=== PATIENT | female | born 1960 | race Caucasian/White ===

== ENCOUNTER 2021-03-23 13:01 | Inpatient (IN) ==
[2021-03-23] MEDS ORDERED: IOPAMIDOL 100 ML BOTTLE IV ONE (13:02)
--- NOTE | 2021-03-23 14:31 | Emergency Department Note ---
HPI General Chief complaint: Skin/Abscess/Rash Stated complaint: Cellulitis Time Seen by Provider: 03/23/21 13:20 Source: patient Mode of arrival: wheelchair Limitations: no limitations History of Present Illness HPI Narrative: Narrative: Patient presents emergency department for evaluation of left groin swelling and pain. She has history of fungal infection of the pannus and has been on fluconazole. She is concerned about possible cellulitis. No fever. No other complaints. Related Data Previous Rx's Medication Instructions Recorded fluconazole 200 mg PO Q7D 28 Days #4 tab MDD 1 03/16/21 per week ketoconazole-hydrocortisone 1 applic TOPICAL .QD 14 Days #30 g 03/16/21 Allergies Allergy/AdvReac Type Severity Reaction Status Date / Time azithromycin AdvReac Intermediate Rash Verified 03/16/21 12:50 Review of Systems ROS ROS Narrative: Narrative: As above, all other systems reviewed and negative. [facility] Narrative Patient History Narrative: Narrative: Reviewed Medical/Surgical/Family History All Active Problems (Updated 03/23/21 @ 16:20 by Darnell Walters MD) Morbid obesity with BMI of 50.0-59.9, adult (Acute) Necrotizing soft tissue infection (Acute) Tinea cruris (Acute) Social History Smoking Status: Never smoker Exam Narrative Narrative: Narrative: Blood pressure 157/77 pulse 105 respirations 19 temperature 97.9 satting 98% General Limitations: no limitations Head Head: Present atraumatic and normocephalic Eye Eye: Present normal appearance and PERRL ENT ENT: Present normal exam and normal oropharynx Neck Neck: Present normal inspection and full ROM Respiratory Respiratory: Absent respiratory distress Extremities Extremities: Present normal inspection Neurological Neurological: Present alert, oriented X3 and CN II-XII intact; Absent motor sensory deficit Psychiatric Psychiatric: Present normal affect and normal mood Skin Skin: Present other (Erythema to the pannus and left groin there are 2 spots in the groin with some small areas of eschar) Course Vital Signs Vital signs: Vital Signs Temperature 97.9 F 03/23/21 13:02 Pulse Rate 105 H 03/23/21 13:02 Respiratory Rate 19 03/23/21 13:02 Blood Pressure 157/77 03/23/21 13:02 Pulse Oximetry (%) 98 03/23/21 13:02 Temperature 97.9 F 03/23/21 13:02 Pulse Rate 113 H 03/23/21 16:14 Respiratory Rate 19 03/23/21 13:02 Blood Pressure 175/81 03/23/21 16:14 Pulse Oximetry (%) 95 03/23/21 16:14 [facility] MDM Narrative Medical decision making narrative: Narrative: CT abdomen pelvis as read by radiology shows: IMPRESSION: 2. Necrotizing fasciitis involving the left perineum, medial left thigh, and inferior pannus on the left 3. Anterior abdominal wall hernia with in the lower pelvis. This measures 6.4 x 4.9 cm. This contains small bowel. There is no small bowel obstruction 4. Nonobstructing left lower pole renal calculus 5. 2 cm left adrenal nodule 6. Degenerative disc dis e at L5-S1 Upon results of CT scan further laboratory studies were ordered to include CBC, ABG, blood cultures, antibiotics: Vancomycin and Zosyn, IV fluids. I also spoke with Dr. Rousseau on-call surgeon. Case reviewed in detail over the phone. Surgery came promptly to the emergency department and evaluated the patient and are planning to take the patient to the operating room. Discussed findings of the work-up with the patient. Her questions were answered. She is agreeable with the plan. Lab Data Result diagrams: 03/23/21 14:30 03/23/21 14:30 Labs: Lab Results 03/23/21 03/23/21 03/23/21 Range/Units 14:30 14:30 14:30 WBC 18.4 H (4.5-11.0) K/mcL RBC 4.47 (3.59-5.38) M/mcL Hgb 13.5 (11.2-15.7) g/dL Hct 41.4 (34.1-44.9) % POC Hct 42 (36-48) % MCV 92.6 (80.0-100.0) fL MCH 30.2 (26.0-34.0) pg MCHC 32.6 (31.0-36.0) g/dL RDW 14.1 (11.5-14.5) % Plt Count 398 (140-440) K/mcL MPV 10.1 (7.4-10.4) fL Neut % (Auto) 85.4 H (38.0-78.0) % Lymph % (Auto) 8.4 L (15.5-49.0) % Thomas % (Auto) 5.6 (1.0-12.0) % Eos % (Auto) 0.2 (0.0-7.0) % Baso % (Auto) 0.4 (0.0-2.0) % Lymph # (Auto) 1.54 (1.50-4.80) K/mcL Thomas # (Auto) 1.02 H (0.10-0.90) K/mcL Eos # (Auto) 0.03 (0.00-0.70) K/mcL Baso # (Auto) 0.07 (0.00-0.30) K/mcL Absolute Neutrophils 15.71 H (1.80-8.00) K/mcL POC Sodium 138 (133-145) mEq/L Sodium 135 (133-145) mmol/L POC Potassium 3.9 (3.3-5.1) mEql/L Potassium 4.2 (3.3-5.1) mmol/L POC Chloride 102 (96-108) mEq/L Chloride 98 (96-108) mmol/L Carbon Dioxide 22 (22-30) mmol/L POC Total CO2 26 (22-30) mmol/L Anion Gap 15.0 (8.0-16.0) POC BUN 15 (6-20) mg/dL BUN 13 (6-20) mg/dL Creatinine 0.5 L (0.6-1.1) mg/dL POC Creatinine 0.4 L (0.6-1.2) mg/dL GFR Calculation 106 Glucose 244 H (70-105) mg/dL POC Glucose 261 H (70-105) mg/dL Calcium 9.3 (8.6-10.4) mg/dL POC WB Ioniz Calcium 1.03 L (1.16-1.32) mmEq/L Total Bilirubin 0.4 (0.1-1.0) mg/dL AST 16 (<32) U/L ALT 20 (<40) U/L Alkaline Phosphatase 224 H (39-117) U/L Total Protein 7.2 (5.9-8.4) gm/dL Albumin 2.8 L (3.2-5.2) gm/dL Globulin 4.4 H (2.2-3.7) gm/dL Albumin/Globulin Ratio 0.6 L (1.0-2.3) ED POC Tests ED POC Tests: ADALID - SARS Antigen Negative Discharge Plan Patient/Caregiver Discharge Instructions Pt seen by ASSET MANAGER/PA only: No Clinical Impression: Necrotizing soft tissue infection Patient Disposition: Xfer As Inpt ([facility]) Condition: Good Follow up with: No,PCP [Primary Care Provider] - Prescriptions: No Action fluconazole 200 mg tablet 200 mg PO Q7D MDD 1 per week 28 Days Qty: 4 RF: 0 ketoconazole-hydrocortisone 2-2.5 % cream 1 applic topical .QD 14 Days Qty: 30 RF: 1
[2021-03-23 14:39] LABS: POC Blood Urea Nitrogen 15 mg/dL (6-20); POC CO2 26 mmol/L (22-30); POC Calcium, Ionized 1.03 mmEq/L (1.16-1.32); POC Chloride 102 mEq/L (96-108); POC Creatinine 0.4 mg/dL (0.6-1.2); POC Glucose, Random 261 mg/dL (70-105); POC Hematocrit 42 % (36-48); POC Potassium 3.9 mEql/L (3.3-5.1); POC Sodium 138 mEq/L (133-145)
[2021-03-23] MEDS ORDERED: VANCOMYCIN PER PHARMACY IV ONE (15:04)
[2021-03-23] MEDS ORDERED: PIPERACILLIN SODIUM/TAZOBACTAM 3.375 GM in DEXTROSE 5% IN WATER 50 ML IV ONE (15:04)
[2021-03-23] MEDS ORDERED: 0.9 % SODIUM CHLORIDE 1,000 ML IV ONE (15:18)
[2021-03-23 15:25] LABS: Basophils # (Auto) 0.07 K/mcL (0.00-0.30); Basophils % (Auto) 0.4 % (0.0-2.0); Eosinophils # (Auto) 0.03 K/mcL (0.00-0.70); Eosinophils % (Auto) 0.2 % (0.0-7.0); Hematocrit 41.4 % (34.1-44.9); Hemoglobin 13.5 g/dL (11.2-15.7); Lymphocytes # (Auto) 1.54 K/mcL (1.50-4.80); Lymphocytes % (Auto) 8.4 % (15.5-49.0); Mean Cell Volume 92.6 fL (80.0-100.0); Mean Corpuscular HGB Conc 32.6 g/dL (31.0-36.0); Mean Platelet Volume 10.1 fL (7.4-10.4); Monocytes # (Auto) 1.02 K/mcL (0.10-0.90); Monocytes % (Auto) 5.6 % (1.0-12.0); Neutrophils % (Auto) 85.4 % (38.0-78.0); Platelet Count 398 K/mcL (140-440); RBC 4.47 M/mcL (3.59-5.38); Red Cell Distribution Width 14.1 % (11.5-14.5); WBC 18.4 K/mcL (4.5-11.0)
--- NOTE | 2021-03-23 15:25 | Cat Scan Report ---
INDICATION: groin pain / swelling, r/o abscess COMPARISON: None. TECHNIQUE: Axial images were obtained through the abdomen and pelvis. Sagittally and coronally reformatted images. 95 mL Isovue 370 injected intravenously. Oral contrast material was not administered. FINDINGS: Lung bases:Negative. No pulmonary parenchymal nodule. No pleural fluid or pericardial fluid Liver:Negative. No focal intrahepatic mass. No focal abnormality. Liver contour is smooth. No evidence for cirrhosis Gallbladder, bilary:There are multiple gallstones. No gallbladder wall thickening or pericholecystic fluid. No dilated bile ducts Spleen:No splenomegaly. Normal enhancement of splenic and portal veins. Pancreas:No pancreatic mass. No peripancreatic abnormality Adrenal glands:2.2 cm left adrenal nodule. NHUNG values are approximately 40 and considered nonspecific on this postcontrast enhanced examination. 6 month follow-up noncontrast enhanced CT scan recommended Kidneys, ureters, bladder:No solid renal mass. No hydronephrosis. No obstructing calculi. There is a 5 mm nonobstructing left lower pole renal stone There is no hydroureter. No ureteral stone No bladder calculi or detectable mass Gastrointestinal:No detectable colonic mass. There is no diverticulitis. Small bowel is negative. No mechanical small bowel obstruction. Stomach and duodenum are unremarkable Appendix: The appendix is not well visualized. No evidence for appendicitis Vascular:Negative abdominal aorta. Superior mesenteric artery and celiac trunk are normal. Normal opacification of the inferior mesenteric artery Lymphatic:No retroperitoneal or mesenteric adenopathy Mesentery, peritoneum: No free intraperitoneal fluid. No mesenteric or retroperitoneal mass. No intra-abdominal abscess. Reproductive:Uterus is anteflexed. No adnexal mass Musculoskeletal:Degenerative disc disease at L5-S1. There is a vacuum disc. No lumbar compression fractures. No sacral or pelvic fracture. There is an inferior anterior abdominal wall hernia. Hernia defect measures 4.9 cm x 6.4 cm. Hernia contains small bowel. There is no obstruction. There are findings of necrotizing fasciitis involving the medial left thigh, extending to the perineum. There is soft tissue gas within the inferior pannus on the left. No focal fluid collection. IMPRESSION: 2. Necrotizing fasciitis involving the left perineum, medial left thigh, and inferior pannus on the left 3. Anterior abdominal wall hernia with in the lower pelvis. This measures 6.4 x 4.9 cm. This contains small bowel. There is no small bowel obstruction 4. Nonobstructing left lower pole renal calculus 5. 2 cm left adrenal nodule 6. Degenerative disc dis e at L5-S1 The exam was performed using radiation dose optimization techniques including, but not limited to, automated exposure control, adjustment of the mA and/or kV according to patient size and use of iterative reconstruction technique. Interpreted and Authenticated by: Angelito Howard 03/23/21
[2021-03-23] MEDS ORDERED: VANCOMYCIN 2,000 MG in 0.9 % SODIUM CHLORIDE 500 ML IV ONE (16:00)
--- NOTE | 2021-03-23 16:15 | General Surg History&Physical ---
HPI History of Present Illness Patient information: Note initiated : 03/23/21 at 4:12 pm Service Date, if different from initiated Date: [] Patient: Nahomi Amador a 60 y/o F admitted on for Cellulitis. Chief Complaint: [] Chief complaint: Perineal wound History of present illness: Ms. Amador is a 60 year old F who has had a fungal type infection in the fold of her pannus over the last several days, she presented back to the emergency room today with complaint of foul smelling discharge. She denies any fevers chills nausea or vomiting. On exam patient was found to have foul dishwater fluid draining out of her wound. She was sent for a CT scan which is concerning for necrotizing soft tissue infection. I was called to see and further evaluate the patient. Review of Systems Review of systems: Negative other than above PFSH PFSH All Active Problems (Updated 03/23/21 @ 16:16 by Cortez Rousseau MD) Morbid obesity with BMI of 50.0-59.9, adult (Acute) Necrotizing soft tissue infection (Acute) Tinea cruris (Acute) Social History (Updated 03/23/21 @ 16:17 by Cortez Rousseau MD) household members: significant other high-fat food intake: 3 or more times/day smoking status: Unknown if ever smoked alcohol intake frequency: does not drink substance use type: does not use MEDS/ALLERGIES Home Medications and Allergies Home Medications Medication Instructions Recorded Confirmed Type fluconazole 200 mg PO Q7D 28 Days #4 tab MDD 1 03/16/21 Rx per week ketoconazole-hydrocortisone 1 applic TOPICAL .QD 14 Days #30 g 03/16/21 Rx Allergies Allergy/AdvReac Type Severity Reaction Status Date / Time azithromycin AdvReac Intermediate Rash Verified 03/16/21 12:50 Physical Examination Vital Signs Vital signs: Temp Pulse Resp BP Pulse Ox 97.9 F 109 H 19 162/77 94 03/23/21 13:02 03/23/21 15:32 03/23/21 13:02 03/23/21 15:32 03/23/21 15:32 General physical appearance General physical exam: well developed, well nourished, no distress and obese Eyes Eye exam: PERRL and normal ocular movement ENT ENT exam: normal pinna, normal nares, normal mucosa, no hearing loss and no congestion Head Head exam IM: Present atraumatic and normocephalic Neck Neck exam: no masses, no bruits, trachea midline, no lymphadenopathy and no venous distension Cardiovascular Cardiovascular exam IM: Present normal rate and rhythm Respiratory Respiratory exam: normal expansion, normal respiratory effort, clear to percussion and clear to auscultation Abdomen Abdomen: Present soft, tender, bowel sounds and wound (Necrotic wound left perineum and pannus, minimal erythema, dirty fluid draining); Absent surgical scars Hernia: Present none Genitourinary Genitourinary (Female): Present normal external genitalia Rectum Rectum: Present normal sphincter tone, no hemorrhoids, no tenderness, no masses and no bleeding Integumentary Integumentary: Present no rash, no growths and no abnormal pigmentation Neurologic Neurologic: Present normal coordination and normal sensation Musculoskeletal Musculoskeletal: Present normal gait and normal posture Psychiatric Psychiatric: Present oriented to time, oriented to person, oriented to place, speech is normal and memory intact Results Labs Result diagrams: 03/23/21 14:30 03/23/21 14:30 Labs: Abnormal lab results 03/23/21 03/23/21 Range/Units 14:30 14:30 WBC 18.4 H (4.5-11.0) K/mcL Neut % (Auto) 85.4 H (38.0-78.0) % Lymph % (Auto) 8.4 L (15.5-49.0) % [place] # (Auto) 1.02 H (0.10-0.90) K/mcL Absolute Neutrophils 15.71 H (1.80-8.00) K/mcL POC Creatinine 0.4 L (0.6-1.2) mg/dL POC Glucose 261 H (70-105) mg/dL POC WB Ioniz Calcium 1.03 L (1.16-1.32) mmEq/L All other labs normal. A/P Assessment and plan (1) Necrotizing soft tissue infection: Status: Acute (2) Morbid obesity with BMI of 50.0-59.9, adult: Status: Acute Narrative A/P Narrative: This is a pleasant 60-year-old female who presents with signs and symptoms concerning for a necrotizing soft tissue infection in the left perineum and groin region. Risk, benefits, alternatives to treatment discussed with her at length including the urgent nature of urgent wound exploration and debridement, the need for transfer if necrotizing fasciitis is found with e xtensive soft tissue debridement. She verbalizes understanding and all of her questions are answered. Plan: Directly to the OR for soft tissue debridement of the left perineum and left groin. If necrotizing soft tissue infection is found I will widely debride and then she will need to be transferred to a tertiary care center for further treatment. Time Spent With Patient Time: Total time spent is greater than 50% in coordination of care (as documented) at patient's floor/unit and/or counseling patient:
[2021-03-23 16:19] LABS: ALT/SGPT 20 U/L (<40); AST/SGOT 16 U/L (<32); Albumin 2.8 gm/dL (3.2-5.2); Albumin/Globulin Ratio 0.6 (1.0-2.3); Alkaline Phosphatase 224 U/L (39-117); Bilirubin,Total 0.4 mg/dL (0.1-1.0); Blood Urea Nitrogen 13 mg/dL (6-20); Calcium 9.3 mg/dL (8.6-10.4); Carbon Dioxide 22 mmol/L (22-30); Chloride 98 mmol/L (96-108); Globulin 4.4 gm/dL (2.2-3.7); Glomerular Filtration Rate 106; Glucose 244 mg/dL (70-105)
[2021-03-23] MEDS ORDERED: MAGNESIUM SULFATE 2 GM/50 ML BAG IV ONE (17:13)
[2021-03-23] MEDS ORDERED: PROPOFOL 200 MG/20 ML VIAL IV ONE (17:13)
[2021-03-23] MEDS ORDERED: fentaNYL 100 MCG/2 ML VIAL IV ONE (17:13)
[2021-03-23] MEDS ORDERED: DEXAMETHASONE 10 MG/ML VIAL ONE (17:13)
[2021-03-23] MEDS ORDERED: SUGAMMADEX SODIUM 200 MG/2 ML VIAL IV ONE (17:13)
[2021-03-23] MEDS ORDERED: ROCURONIUM 10 MG/ML ML IV ONE (17:13)
[2021-03-23] MEDS ORDERED: MIDAZOLAM 2 MG/2 ML VIAL ONE (17:13)
[2021-03-23] MEDS ORDERED: GLYCOPYRROLATE 0.2 MG/ML VIAL IV ONE (17:13)
[2021-03-23] MEDS ORDERED: LIDOCAINE HCL/PF 100 MG/5 ML SYRINGE IV ONE (17:13)
[2021-03-23] MEDS ORDERED: ONDANSETRON 4 MG/2 ML VIAL ONE (17:13)
[2021-03-23] MEDS ORDERED: KETAMINE 50 MG/ML Syringe (ANEST) IV ONE (17:13)
[2021-03-23] MEDS ORDERED: KETOROLAC 30 MG/ML VIAL IV PRN (17:49)
[2021-03-23] MEDS ORDERED: ACETAMINOPHEN 1,000 MG/100 ML BAG IV ONE ×2 (17:49→18:57)
[2021-03-23] MEDS ORDERED: fentaNYL 100 MCG/2 ML VIAL IV PRN (17:49)
[2021-03-23] MEDS ORDERED: IPRATROPIUM/ALBUTEROL 3 ML AMPUL.NEB NEB PRN (17:49)
[2021-03-23] MEDS ORDERED: MEPERIDINE 25 MG/ML VIAL IV PRN (17:49)
[2021-03-23] MEDS ORDERED: ONDANSETRON 4 MG/2 ML VIAL IV PRN ×2 (17:49→18:41)
[2021-03-23] MEDS ORDERED: LACTATED RINGERS 1,000 ML IV SCH ×2 (18:00→18:45)
--- NOTE | 2021-03-23 18:28 | Operative Note ---
Brief Operative Note Date of procedure: 03/23/21 Pre-op diagnosis: Necrotizing soft tissue infection Post-op diagnosis: same Procedure: Wide debridement left labia, left thigh, left mons down to the level of the fascia Grafts/Implants: No Anesthesia: GETA Findings: Necrotizing soft tissue infection Complications: none Surgeon: Cortez Rousseau Estimated blood loss (cc): 500 Specimens Removed/Pathology: other (Skin and soft tissue, soft tissue for wound culture) Condition: stable Disposition: PACU Operative Note Operative Note: This is a 60-year-old female who presented to the emergency room with signs and symptoms concerning for a soft tissue necrotic infection. Risk, benefits, alternatives to treatment discussed with her and her at length . They verbalized understanding and desire to continue with the procedure. Patient was taken main operating place upon the table. General anesthesia was induced over endotracheal tube. Patient was then placed in a modified lithotomy position. Patient's prepped and draped in the standard sterile surgical fashion. Surgical timeout was taken to verify patient and procedure being performed. Visual inspection revealed build multiple necrotic lesions draining dishwater fluids on the inner left aspect of the mons, labia majora and the inner part of the left thigh wide incision was made carried down through the skin and subcutaneous tissue to include all the areas of necrotic tissue down to good healthy bleeding tissue. There were still several areas of necrotic tissue these were also widely excised down to the fascia. The infection did not seem to involve the fascia. Multiple attempts to track along the fascia were unsuccessful which showed good adhesion of the soft tissue to the fascia. There is an area on the inner left thigh which did not have necrosis but appeared dusky and decision was made on this carried down through skin and subcutaneous tissue down to the fascia there was no necrotic tissue identified, there was no fluid that drained and the fascia was intact and did not track along the subcutaneous tissue. This part was then left intact. Hemostasis was obtained after all the necrotic areas were dissected free. This was obtained with electrocautery and interrupted 3-0 Vicryl sutures. The wound was then packed with Betadine soaked Kerlix gauze, ABDs and tape dressings were applied. Patient was then awakened from anesthesia transported postanesthesia care unit awake alert in stable condition. Patient will be transferred to the intensive care unit and then transferred to [facility] for a second look procedure to verify source control.
[2021-03-23] MEDS ORDERED: HYDROmorphone 1 MG/ML SYRINGE IV PRN (18:41)
[2021-03-23] MEDS ORDERED: PIPERACILLIN SODIUM/TAZOBACTAM 3.375 GM in DEXTROSE 5% IN WATER 50 ML IV SCH (18:45)
--- NOTE | 2021-03-23 18:48 | Transfer Summary ---
Discharge Provider Provider Patient information: Note initiated : 03/23/21 at 6:45 pm Service Date, if different from initiated Date: [] Patient: Nahomi Amador 60 y/o F admitted on for Cellulitis. Chief Complaint: [] Discharge date: 03/23/21 Primary care physician: PCP No Consults: 03/23/21 Consult to Physician [CONS] Stat Comment: Consulting Provider: Cortez Rousseau Reason For Exam: Physician to Consult Discharge Meds Discharge Medications Home Medications fluconazole 200 mg PO Q7D 28 Days #4 tab MDD 1 per week 03/16/21 [Rx Last Taken Unknown] ketoconazole-hydrocortisone 1 applic TOPICAL .QD 14 Days #30 g 03/16/21 [Rx Last Taken Unknown] COURSE Hospital Course Hospital course: This is a 60-year-old female who presented to the emergency room today with increased pain and foul smelling discharge from her left groin region. She was found to have several necrotic lesions and underwent a CT scan which was concerning for necrotic soft tissue infection. Patient was taken immediately to the operating room, necrotizing soft tissue infection was identified, she underwent a wide debridement down to healthy tissue. Due to concerns for source control and ongoing infections choices made to transfer to a tertiary care referral center. [facility] was contacted and they agreed to accept the patient in transfer. Discharge diagnosis: Necrotizing soft tissue infection of left perineum Secondary discharge diagnosis: Morbid obesity Reason for admission: Necrotizing soft tissue infection Procedures: Wide debridement Pertinent studies/significant findings: CT scan Time Spent with Patient Time attestation: Total time spent providing and/or coordinating discharge services: Time spent: Greater than 30 minutes EXAM Constitutional Vitals: Temp Pulse Resp BP Pulse Ox 97.9 F 136 H 19 167/83 96 03/23/21 13:02 03/23/21 16:30 03/23/21 13:02 03/23/21 16:30 03/23/21 16:30 Discharge Data Data Completed and Pending Labs on day of discharge: Labs from last 24 hours 03/23/21 03/23/21 03/23/21 14:30 14:30 14:30 WBC 18.4 H RBC 4.47 Hgb 13.5 Hct 41.4 POC Hct 42 MCV 92.6 MCH 30.2 MCHC 32.6 RDW 14.1 Plt Count 398 MPV 10.1 Neut % (Auto) 85.4 H Lymph % (Auto) 8.4 L [place] % (Auto) 5.6 Eos % (Auto) 0.2 Baso % (Auto) 0.4 Lymph # (Auto) 1.54 [place] # (Auto) 1.02 H Eos # (Auto) 0.03 Baso # (Auto) 0.07 Absolute Neutrophils 15.71 H POC Sodium 138 Sodium 135 POC Potassium 3.9 Potassium 4.2 POC Chloride 102 Chloride 98 Carbon Dioxide 22 POC Total CO2 26 Anion Gap 15.0 POC BUN 15 BUN 13 Creatinine 0.5 L POC Creatinine 0.4 L GFR Calculation 106 Glucose 244 H POC Glucose 261 H Calcium 9.3 POC WB Ioniz Calcium 1.03 L Total Bilirubin 0.4 AST 16 ALT 20 Alkaline Phosphatase 224 H Total Protein 7.2 Albumin 2.8 L Globulin 4.4 H Albumin/Globulin Ratio 0.6 L Discharge Plan Patient/Caregiver Discharge Instructions Diet: NPO Prescriptions: No Action fluconazole 200 mg tablet 200 mg PO Q7D MDD 1 per week 28 Days Qty: 4 RF: 0 ketoconazole-hydrocortisone 2-2.5 % cream 1 applic topical .QD 14 Days Qty: 30 RF: 1 Follow Up Plan Follow up with: No,PCP [Primary Care Provider] - Patient Disposition: [facility] Prognosis: Good Discharge Orders: Discharge Order (Routine); Ordered 03/23/21 Ordered By: Cortez Rousseau
[2021-03-23] MEDS ORDERED: metroNIDAZOLE 500 MG/100 ML BAG IV ONE (19:41)
[2021-03-23] MEDS: metroNIDAZOLE 500 MG/100 ML BAG IV SCH ×2 (19:45→21:02)
[2021-03-23] MEDS: AMPICILLIN SODIUM 2 GM VIAL IV SCH ×2 (20:30→20:35)
[2021-03-23] MEDS: FAMOTIDINE/PF 20 MG/2 ML VIAL IV SCH ×2 (20:30→21:00)
[2021-03-23] MEDS ORDERED: 0.9 % SODIUM CHLORIDE 10 ML SYRINGE IV SCH (22:00)
[2021-03-24] MEDS ORDERED: ENOXAPARIN 40 MG/0.4 ML SYRINGE SQ SCH (09:00)
--- NOTE | 2021-03-24 10:31 | EKG ---
[facility] Test Date: 2021-03-23 Pat Name: Nahomi Amador Department: ED Room: Gender: Female Sales/Marketing: : 1960 Requested By: Darnell Walters Order Number: [id number] Reading MD: Jeffery Heredia Measurements Intervals Ulysses Rate: 108 P: 52 LA: 163 QRS: -35 QRSD: 105 T: 80 QT: 354 QTc: 475 Interpretive Statements Sinus tachycardia Left axis deviation Abnormal R-wave progression, late transition Electronically Signed On 03-24-2021 10:30:36 PDT by Jeffery Heredia /store/[email or web address]/[id number]
--- NOTE | 2021-03-26 14:14 | Surgical Pathology Report ---
Histology Microscopic Diagnosis Specimen A- SOFT TISSUE, LEFT MONS/LABIA/INNER THIGH WOUND, EXCISION: --- SKIN AND SUBCUTANEOUS TISSUE WITH DENSE ACUTE NECROTIZING INFLAMMATION, BACTERIAL FORMS AND ABSCESS FORMATION. --- BACTERIAL FORMS CONFIRMED ON GRAM STAIN (ADEQUATE TECHNICAL CONTROL). --- NO FUNGAL OR ACID FAST ORGANISMS IDENTIFIED ON GMS AND AFB STAINS (ADEQUATE TECHNICAL CONTROL), RESPECTIVELY. --- NO MALIGNANCY IDENTIFIED. (EBD) Gross Description Received in formalin labeled are three pieces of skin with dusky necrotic areas ranging in size from 8.7 x 2.9 x 2.4 cm up to 14.5 x 11.6 x 5.6 cm. The smallest fragment does not have a dusky necrotic area on the surface; however within the soft tissue beneath there is a 1.5 x 0.5 cm dusky dorado area. On the second fragment there is an 8 cm crease and there is a 2 x 2.1 cm dusky dorado area extending to one edge. The second piece has overall measurements of 11 x 3.5 x 3.5 cm. It is disrupted extending from the previously mentioned necrotic area on the skin surface. There is a corresponding disrupted area/hole extending through the soft tissue. There are four dusky possibly necrotic areas on the largest piece. They range in size from 3 x 2 cm up to 5.5 x 4 cm,. One of these extends past the edge of the skin and has an 11 cm portion of dusky dorado soft tissue protruding from the specimen. Each of these dusky tony areas has a fluid filled cavity extending from the skin surface to the soft tissue beneath. Supplier Quality Manager sections are submitted in four cassettes: A1 - major account representative sections from two smaller fragments; A2 A4 - major account representative sections from largest fragment. (SCB:adj) Electronically Signed Keesha Poe MD, FCAP Electronically Signed 03/26/2021 14:13
== END 2021-03-23 20:33 | disposition short-term general hospital (02) | DRG 464 ==
LOC: ED 13:01 → SUR 16:38 → ICU 19:15
PROVIDERS: ADMIT Surgery; ATTEND Surgery